=== PATIENT | female | born 1950 | race Caucasian/White ===

== ENCOUNTER 2017-08-19 09:59 | Inpatient (IN) | payer BC, OTHER ==
[~2017-08-19] VITALS: Ht 149.9 cm; Wt 49.8 kg
[2017-08-19] MEDS ORDERED: ONDANSETRON 4 MG INJ IV STA (10:32)
[2017-08-19] MEDS ORDERED: SOD CHLORIDE 0.9% 1,000 ML IV STA (10:32)
[2017-08-19] MEDS ORDERED: HYDROmorphONE 1 MG/ML SYG IV STA (10:32)
[2017-08-19 11:06] LABS: ADD UMIC YES; UR ASCORBIC ACID NEGATIVE (NEGATIVE); UR BACTERIA FEW /HPF (NONE SEEN); UR BILIRUBIN (Dip) NEGATIVE (NEGATIVE); UR BLOOD (Dip) 1+ mg/dL (NEGATIVE); UR CLARITY SLIGHTLY CLOUDY (CLEAR); UR COLOR YELLOW (YELLOW); UR GLUCOSE (Dip) NEGATIVE (NEGATIVE); UR KETONES (Dip) NEGATIVE (NEGATIVE); UR LEUKOCYTE ESTERASE (Dip) 1+ Leu/ul (NEGATIVE); UR MUCUS MANY /HPF (NONE SEEN); UR NITRITE (Dip) NEGATIVE (NEGATIVE); UR RBC 0 /HPF (0-5); UR SPECIFIC GRAVITY (Dip) 1.018 (1.003-1.030); UR SQUAMOUS EPITHELIAL CELL FEW /HPF (FEW); UR TOTAL PROTEIN (Dip) NEGATIVE (NEGATIVE); UR UROBILINOGEN (Dip) NEGATIVE (NEGATIVE)
[2017-08-19 11:18] LABS: BASOPHIL # 0.1 10^3/ul (0.0-0.1); BASOPHILS % 0.8 % (0.0-2.0); EOSINOPHILS % 0.1 % (0.0-7.0); HEMOGLOBIN 13.4 g/dl (12.0-16.0); LYMPHOCYTES # 1.7 10^3/ul (0.8-2.9); LYMPHOCYTES % 17.7 % (15.0-51.0); MEAN CORPUSCULAR HEMOGLOBIN 29.5 pg (29.0-33.0); MEAN CORPUSCULAR HGB CONC 34.4 g/dl (32.0-37.0); MEAN CORPUSCULAR VOLUME 85.9 fl (82.0-101.0); MEAN PLATELET VOLUME 10.3 fl (7.4-10.4); MONOCYTE # 0.5 10^3/ul (0.3-0.9); MONOCYTES % 4.8 % (0.0-11.0); NEUTROPHIL # 7.1 10^3/ul (1.6-7.5); NEUTROPHILS % 76.3 % (39.0-77.0); PLATELET COUNT 337 10^3/UL (140-415); RED BLOOD COUNT 4.54 10^6/ul (4.20-5.40); RED CELL DISTRIBUTION WIDTH 13.1 % (11.5-14.5); WHITE BLOOD COUNT 9.3 10^3/ul (4.8-10.8)
[2017-08-19 11:32] LABS: ALBUMIN 4.4 g/dl (3.3-4.9); ALBUMIN/GLOBULIN RATIO 1.33; BILIRUBIN,INDIRECT 0.7 mg/dl (0-1.1); BILIRUBIN,TOTAL 0.7 mg/dl (0.2-1.3); CALCIUM 11.3 mg/dl (8.4-10.2); CREATININE 0.66 mg/dl (0.44-1.00); TOTAL PROTEIN 7.7 g/dl (6.1-8.1)
[2017-08-19] MEDS ORDERED: IOHEXOL 300MG/ML 150 ML BTL ONE (11:56)
[2017-08-19] MEDS ORDERED: SOD CHLORIDE 0.9% 100 ML ONE (11:56)
--- NOTE | 2017-08-19 12:40 | RADRPT ---
PROCEDURE: CT ABDOMEN AND PELVIS WITH IV CONTRAST. CLINICAL INDICATION: Lower abdominal pain TECHNIQUE: CT scan of the abdomen and pelvis without contrast was performed on a multidetector hig h-resolution CT scanner following the use of IV contrast. 80 cc Omnipaque-300 was administered. Arthur nal and sagittal reformatted images were obtained from the axial source images. Images were reviewed on a high-resolution PACS workstation. The total exam CTDI equals 7.7 mGy and the total exam DLP eq uals 380 mGy-cm. One or more of the following dose reduction techniques were used: Automated exposure control. Adjustment of the mA and/or kV according to patient size. Use of iterative reconstruction technique. DICOM images are available. COMPARISON: None FINDINGS: CT abdomen: The lung bases are clear. The heart size is within normal limits. There is no significant pericardia l effusion. Hepatic morphology is within limits. There is trace perihepatic fluid. Gallbladder is is within limi ts. No evidence of intrahepatic or extrahepatic dilatation. The spleen and pancreas are within limits. Both adrenal glands are within normal limits. Both kidneys are normal anatomic position. There are small bilateral renal cysts. No gross renal/ure teric calculi. No evidence of obstruction hydronephrosis. The visualized GI tract demonstrates several fluid filled dilated loops of distal small bowel within the right lower quadrant. Anastomotic sutures are noted within the right lower quadrant. Status pos t right hemicolectomy. There is adjacent fat stranding small amount of fluid within the right lower quadrant. Distal small bowel fecalization is noted. Minimal atherosclerotic calcification of the aorta is identified. No significant retroperitoneal lym phadenopathy. CT pelvis: The bladder is within normal limits. The uterus is unremarkable. Small amount free fluid within the pelvis. Rectosigmoid colon is within limits. The uterus is unremarkable. No significant pelvic lymph adenopathy. The visualized osseous structures demonstrate mild degenerative changes. IMPRESSION: 1. Status post right hemicolectomy and anastomotic sutures are noted within the right lower quadrant .. The appendix is not visualized. There are several loops of dilated distal small bowel loops, with small bowel fecaliation and adjacent small amount of free fluid and fat stranding. Findings suggest luiza of partial small bowel obstruction versus early small bowel obstruction. Consider follow-up smal l bowel series. 2. Small bilateral renal cysts. No evidence of obstruction or hydronephrosis. RPTAT: AAPP Madan Allison, Physician Date Time Electronically viewed and signed by Madan Allison, Physician on 08/19/2017 12:40 HIREN/
--- NOTE | 2017-08-19 14:06 | ERD ---
ER Documentation Chief Complaint Chief Complaint sent by dr melo for eval on abd pain x 2 days HPI This is a the 66-year-old female who is here for her diffuse abdominal pain onset yesterday. She the pain is getting gradually worse. Patient says she is having no nausea vomiting diarrhea has had no bowel movement today. She has a history of a partial colectomy due to what she describes as a "infected ball" which I assume is an abscess, likely from a diverticulitis perforation. She states she does not have colon cancer. Says the pain is constant and progressively getting worse. Her doctor sent her here for evaluation no fever no cough no back pain dysuria or hematuria ROS All systems reviewed and are negative except as per history of present illness. Medications Home Meds Discontinued Reported Medications [None] No Conflict Check 06/09/15 Allergies Allergies: Coded Allergies: No Known Allergy (Unverified , 06/09/15) PMhx/Soc History of Surgery: Yes (LEFT BREAST CYST REMOVAL, LAPROSCOPIC SURGERY) Anesthesia Reaction: No Hx Neurological Disorder: No Hx Respiratory Disorders: No Hx Cardiac Disorders: Yes (HYPERCHOLESTEROLEMIA) Hx Psychiatric Problems: No Hx Miscellaneous Medical Probl: No Hx Alcohol Use: No Hx Substance Use: No Hx Tobacco Use: No Smoking Status: Never smoker FmHx Family History: No coronary disease Physical Exam Vitals Vital Signs Date Time Temp Pulse Resp B/P Pulse Ox O2 Delivery O2 Flow Rate FiO2 08/19/17 12:38 98.2 61 13 128/65 96 Room Air 08/19/17 10:15 63 16 150/63 100 Room Air 08/19/17 10:02 97.7 71 18 151/70 99 Physical Exam Const: Well-developed, well-nourished Head: Atraumatic, normocephalic Eyes: Normal Conjunctiva, PERRLA, EOMI, normal sclera, no nystagmus ENT: Normal External Ears, Nose and Mouth, moist mucus membranes. Neck: Full range of motion. No meningismus, no lymphadenopathy. Resp: Clear to auscultation bilaterally, no wheezing, rhonchi, rales Cardio: Regular rate and rhythm, no murmurs, S1 S2 present Abd: Soft, diffuse mild to moderate tenderness non distended. Normal bowel sounds, no guarding or rebound, no pulsitile abdominal masses or bruits Skin: No petechiae or rashes, no ecchymosis , no maculopapular rash Back: No midline or flank tenderness Ext: No cyanosis, or edema, FROM x 4, normal inspection, neurovascularly intact x 4 Neur: Awake and alert, STR 5/5 x 4, sensation intact x 4, no focal findings, cerebellum intact Psych: Normal Mood and Affect Result Diagram: 08/19/17 1045 08/19/17 1045 Results 24 hrs Laboratory Tests Test 08/19/17 10:45 White Blood Count 9.310^3/ul Red Blood Count 4.5410^6/ul Hemoglobin 13.4g/dl Hematocrit 39.0% Mean Corpuscular Volume 85.9fl Mean Corpuscular Hemoglobin 29.5pg Mean Corpuscular Hemoglobin Concent 34.4g/dl Red Cell Distribution Width 13.1% Platelet Count 39969^3/UL Mean Platelet Volume 10.3fl Neutrophils % 76.3% Lymphocytes % 17.7% Monocytes % 4.8% Eosinophils % 0.1% Basophils % 0.8% Nucleated Red Blood Cells % 0.0/100WBC Neutrophils # 7.110^3/ul Lymphocytes # 1.710^3/ul Monocytes # 0.510^3/ul Eosinophils # 0.010^3/ul Basophils # 0.110^3/ul Nucleated Red Blood Cells # 0.010^3/ul Urine Color YELLOW Urine Clarity SLIGHTLY CLOUDY Urine pH 6.0 Urine Specific [place] 1.018 Urine Ketones NEGATIVEmg/dL Urine Nitrite NEGATIVEmg/dL Urine Bilirubin NEGATIVEmg/dL Urine Urobilinogen NEGATIVEmg/dL Urine Leukocyte Esterase 1+Stephane/ul Urine Microscopic RBC 0/HPF Urine Microscopic WBC 5/HPF Urine Squamous Epithelial Cells FEW/HPF Urine Calcium Oxalate Crystals FEW/HPF Urine Bacteria FEW/HPF Urine Mucus MANY/HPF Urine Hemoglobin 1+mg/dL Urine Glucose NEGATIVEmg/dL Urine Total Protein NEGATIVEmg/dl Sodium Level 141mmol/L Potassium Level 4.0mmol/L Chloride Level 104mmol/L Carbon Dioxide Level 24mmol/L Anion Gap 17 Blood Urea Nitrogen 12mg/dl Creatinine 0.66mg/dl Glucose Level 98mg/dl Calcium Level 11.3mg/dl Total Bilirubin 0.7mg/dl Direct Bilirubin 0.00mg/dl Indirect Bilirubin 0.7mg/dl Aspartate Amino Transf (AST/SGOT) 33IU/L Alanine Aminotransferase (ALT/SGPT) 36IU/L Alkaline Phosphatase 205IU/L Total Protein 7.7g/dl Albumin 4.4g/dl Globulin 3.30g/dl Albumin/Globulin Ratio 1.33 Lipase 185U/L Current Medications Medications (Trade) Dose Ordered Sig/Karen Route PRN Reason Start Time Stop Time Status Last Admin Dose Admin Sodium Chloride (NS) 1,000 ml @ 1,000 mls/hr Q1H STAT IV 08/19/17 10:32 08/19/17 11:31 DC 08/19/17 11:09 Hydromorphone HCl (Dilaudid) 1 mg ONCE STAT IV 08/19/17 10:32 08/19/17 10:34 DC 08/19/17 11:08 Ondansetron HCl (Zofran Inj) 4 mg ONCE STAT IV 08/19/17 10:32 08/19/17 10:34 DC 08/19/17 11:08 IV Flush 10 ml 10 ml STK-MED ONCE .ROUTE 08/19/17 11:56 08/19/17 11:57 DC 08/19/17 12:13 Sodium Chloride (NS) 100 ml @ ud STK-MED ONCE .ROUTE 08/19/17 11:56 08/19/17 11:57 DC 08/19/17 12:13 Iohexol (Omnipaque 300mg/ ml) 150 ml STK-MED ONCE .ROUTE 08/19/17 11:56 08/19/17 11:57 DC 08/19/17 12:13 Procedures/MDM PROCEDURE: CT ABDOMEN AND PELVIS WITH IV CONTRAST. CLINICAL INDICATION: Lower abdominal pain TECHNIQUE: CT scan of the abdomen and pelvis without contrast was performed on a multidetector high-resolution CT scanner following the use of IV contrast. 80 cc Omnipaque-300 was administered. Coronal and sagittal reformatted images were obtained from the axial source images. Images were reviewed on a high- resolution PACS workstation. The total exam CTDI equals 7.7 mGy and the total exam DLP equals 380 mGy-cm. One or more of the following dose reduction techniques were used: Automated exposure control. Adjustment of the mA and/or kV according to patient size. Use of iterative reconstruction technique. DICOM images are available. COMPARISON: None FINDINGS: CT abdomen: The lung bases are clear. The heart size is within normal limits. There is no significant pericardial effusion. Hepatic morphology is within limits. There is trace perihepatic fluid. Gallbladder is is within limits. No evidence of intrahepatic or extrahepatic dilatation. The spleen and pancreas are within limits. Both adrenal glands are within normal limits. Both kidneys are normal anatomic position. There are small bilateral renal cysts. No gross renal/ureteric calculi. No evidence of obstruction hydronephrosis. The visualized GI tract demonstrates several fluid filled dilated loops of distal small bowel within the right lower quadrant. Anastomotic sutures are noted within the right lower quadrant. Status post right hemicolectomy. There is adjacent fat stranding small amount of fluid within the right lower quadrant. Distal small bowel fecalization is noted. Minimal atherosclerotic calcification of the aorta is identified. No significant retroperitoneal lymphadenopathy. CT pelvis: The bladder is within normal limits. The uterus is unremarkable. Small amount free fluid within the pelvis. Rectosigmoid colon is within limits. The uterus is unremarkable. No significant pelvic lymphadenopathy. The visualized osseous structures demonstrate mild degenerative changes. IMPRESSION: 1. Status post right hemicolectomy and anastomotic sutures are noted within the right lower quadrant.. The appendix is not visualized. There are several loops of dilated distal small bowel loops, with small bowel fecaliation and adjacent small amount of free fluid and fat stranding. Findings suggestive of partial small bowel obstruction versus early small bowel obstruction. Consider follow- up small bowel series. 2. Small bilateral renal cysts. No evidence of obstruction or hydronephrosis. RPTAT: AAPP Physician Nathalie Date Time Electronically viewed and signed by Physician Nathalie on 08/19/2017 12:40 JL/ CC: MICHELLE ALMEIDA DO Patient has a partial small bowel obstruction. We are paging the surgeon on- call Dr. Perry We will admit to the hospitalist for bowel rest and IV fluids She is not vomiting at this time I will not place an NG tube Departure Diagnosis: Primary Impression: Partial small bowel obstruction Condition: Stable MICHELLE ALMEIDA DO Aug 19, 2017 14:06
[2017-08-19] MEDS ORDERED: SOD CHLORIDE 0.9% 1,000 ML IV SCH (14:08)
[2017-08-19] MEDS ORDERED: ACETAMINOPHEN 325 MG TAB PO PRN ×2 (14:30→17:00)
[2017-08-19] MEDS ORDERED: ONDANSETRON 4 MG INJ IV PRN (14:30)
--- NOTE | 2017-08-19 16:27 | CONS ---
Date/Time of Note Date/Time of Note DATE: 08/19/17 TIME: 16:13 Assessment/Plan Assessment/Plan Chief Complaint/Hosp Course 1. Partial sbo vs. ileus: recent right colectomy; +bowel function -sbft -ambulate -npo -ivf 2. Abdominal pain: 2/2 #1 -pain management 3. UTI: -abx per sensitivity -frequent bladder emptying/cath care 4. Elevated alk phos -trend 5. Hypercalcemia -optimize lytes Thank you. Patient seen and examined in collaboration with Dr. Los Perry. Problems: Consultation Date/Type/Reason Admit Date/Time Date of Consultation: Aug 19, 2017 Type of Consultation: surgical Reason for Consultation psbo Referring Provider: MICHELLE ALMEIDA DO Hx of Present Illness Kwan Lux is a 66 yo woman with a recent right colectomy who presented with abdominal pain in the lower abdomen. She had a right colectomy for a non- cancerous mass removal over a year ago at [facility] by Dr. Klein. Associated symptoms include nausea without vomiting. She has passed some gas and has a small bowel movement today. She denies fevers, chills, congested cough , hematemesis, hematochezia, melena. Imaging of the abdomen was concerning for bowel obstruction. General surgery was asked to evaluate. Constitutional: No chills, No disoriented, No febrile Eyes: No visual change ENT: No congestion, No pain Respiratory: No cough, No shortness of breath Cardiovascular: No chest pain, No lightheadedness Gastrointestinal: decreased appetite, nausea, No constipation, No diarrhea, No vomiting Genitourinary: No dysuria, No flank pain Musculoskeletal: No back pain Skin: No bruising, No rash Neurologic: No dizziness, No focal-weakness, No headache Psychological: nl mood/affect, No anxiety Immunologic: No no complaints Past Medical History hypercholesterolemia left breast cyst mass in prox ascending colon Past Surgical History right colectomy lap breast cyst removal Family History Significant Family History: no pertinent family hx Social History Alcohol Use: none Smoking Status: Never smoker Drug Use: none Exam/Review of Systems Vital Signs Vitals Vital Signs Date Time Temp Pulse Resp B/P Pulse Ox O2 Delivery O2 Flow Rate FiO2 08/19/17 12:38 98.2 61 13 128/65 96 Room Air Exam Constitutional: alert, oriented Psych: nl mood/affect Head: atraumatic, normocephalic Eyes: nl lids, nl sclera ENMT: mucosa pink and moist, nl nasal mucosa & septum Neck: non-tender, supple Respiratory: clear to auscultation, normal air movement Cardiovascular: nl pulses, regular rate and rhythm (sr) Gastrointestinal: distended (min), soft, tender (min lower quads) Genitourinary - Female: nl adnexae, nl external genitalia Musculoskeletal: nl extremities to inspection, nl gait and stance Extremities: normal pulses Neurological: nl mental status, nl speech, nl strength Skin: No rash or lesions Lymph: nl lymph nodes Results Result Diagram: 08/19/17 1045 08/19/17 1045 Results 24 hrs Laboratory Tests Test 08/19/17 10:45 White Blood Count 9.3 Red Blood Count 4.54 Hemoglobin 13.4 Hematocrit 39.0 Mean Corpuscular Volume 85.9 Mean Corpuscular Hemoglobin 29.5 Mean Corpuscular Hemoglobin Concent 34.4 Red Cell Distribution Width 13.1 Platelet Count 337 Mean Platelet Volume 10.3 Neutrophils % 76.3 Lymphocytes % 17.7 Monocytes % 4.8 Eosinophils % 0.1 Basophils % 0.8 Nucleated Red Blood Cells % 0.0 Neutrophils # 7.1 Lymphocytes # 1.7 Monocytes # 0.5 Eosinophils # 0.0 Basophils # 0.1 Nucleated Red Blood Cells # 0.0 Urine Color YELLOW Urine Clarity SLIGHTLY CLOUDY A Urine pH 6.0 Urine Specific [place] 1.018 Urine Ketones NEGATIVE Urine Nitrite NEGATIVE Urine Bilirubin NEGATIVE Urine Urobilinogen NEGATIVE Urine Leukocyte Esterase 1+ H Urine Microscopic RBC 0 Urine Microscopic WBC 5 Urine Squamous Epithelial Cells FEW Urine Calcium Oxalate Crystals FEW A Urine Bacteria FEW A Urine Mucus MANY A Urine Hemoglobin 1+ H Urine Glucose NEGATIVE Urine Total Protein NEGATIVE Sodium Level 141 Potassium Level 4.0 Chloride Level 104 Carbon Dioxide Level 24 Anion Gap 17 H Blood Urea Nitrogen 12 Creatinine 0.66 Glucose Level 98 Calcium Level 11.3 H Total Bilirubin 0.7 Direct Bilirubin 0.00 Indirect Bilirubin 0.7 Aspartate Amino Transf (AST/SGOT) 33 Alanine Aminotransferase (ALT/SGPT) 36 Alkaline Phosphatase 205 H Total Protein 7.7 Albumin 4.4 Globulin 3.30 H Albumin/Globulin Ratio 1.33 Lipase 185 Medications Medications Current Medications Sodium Chloride (NS) 1,000 ml @ 80 mls/hr [id number] IV ; Start 08/19/17 at 14:08 ; Stop 08/20/17 at 02:37 KIERRA WALTERS NP Aug 19, 2017 16:25
[2017-08-19] MEDS ORDERED: ACETAMINOPHEN 650 MG SUPP PR PRN (17:00)
[2017-08-19] MEDS ORDERED: DOCUSATE SODIUM 100 MG CAP PO PRN (17:00)
[2017-08-19] MEDS ORDERED: HYDROCODONE/APAP (5/325) TAB PO PRN ×2 (17:00)
[2017-08-19] MEDS ORDERED: MAGNESIUM HYDROXIDE 30ML CUP PO PRN (17:00)
[2017-08-19] MEDS ORDERED: NACL 0.9% 3 ML SYG IV SCH (17:00)
[2017-08-19] MEDS ORDERED: BISACODYL 10 MG SUPP PR PRN (17:00)
--- NOTE | 2017-08-19 17:06 | HP ---
Date/Time of Note Date/Time of Note DATE: 08/19/17 TIME: 17:00 Assessment/Plan VTE Prophylaxis VTE Prophylaxis Intervention: SCD's Assessment/Plan Chief Complaint/Hosp Course Impression and plan 1.Abdominal pain secondary to possible partial SBO versus early small bowel obstruction. Surgeon is following. Keep n.p.o. for now. Will place an IV hydration. Analgesics as needed. Monitor for improvement of pain. Advance diet per surgery recommendations. 2. Positive leukocyte esterase test. Will follow up on urine culture. Patient remains afebrile with no elevation in white count and no reports of dysuria. Will hold off antibiotics for now. 3. Elevated calcium level. Likely transient. Start IV hydration. Monitor level. 4. Transaminitis. Monitor for now. Further workup pending clinical course. Admission process time is greater than 40 minutes Discussed plan of care with Dr. 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 Patient reports she has been nausea without vomiting or diarrhea. She does report being able to pass gas and had a bowel movement both yesterday and today. She reports only minimal but formed bowel movement. She denies any chest pain or sick contacts or any other fever associated symptoms. As such she was brought to [facility] for further evaluation. Upon examination she had a CT scan of her abdomen and pelvis did have findings showing right-sided hemicolectomy and anastomotic sutures. There are also seen several loops of dilated distal small bowel loops. Findings were suggestive of partial small bowel obstruction versus early small bowel obstruction. CBC was otherwise unremarkable. Lipase was normal. BMP was also with no significant findings. Patient remained afebrile. We will evaluate her for the aformentiond issues. ROS 12 point review of systems obtained and entirely negative except that mentioned in the history of present illness Eyes: No visual change ENT: No congestion, No pain Respiratory: No cough, No shortness of breath Cardiovascular: No chest pain, No lightheadedness Gastrointestinal: decreased appetite, nausea, No constipation, No diarrhea, No vomiting Genitourinary: No dysuria, No flank pain Musculoskeletal: No back pain Skin: No bruising, No rash Neurologic: No dizziness, No focal-weakness, No headache Psychological: nl mood/affect Immunologic: No no complaints PMH/Family/Social Past Medical History Medical/surgical history 1. History of colonic tumor status post colectomy (right) Social History Alcohol Use: none Smoking Status: Never smoker Drug Use: none Exam/Review of Systems Vital Signs Vitals Vital Signs Date Time Temp Pulse Resp B/P Pulse Ox O2 Delivery O2 Flow Rate FiO2 08/19/17 12:38 98.2 61 13 128/65 96 Room Air Exam Constitutional: alert, oriented Eyes: nl conjunctiva Respiratory: clear to auscultation, normal air movement Cardiovascular: nl pulses, regular rate and rhythm Gastrointestinal: soft, tender (Tender with noted hypoactive bowel sounds) Musculoskeletal: nl extremities to inspection Neurological: [employer] II-XII intact, nl mental status, nl speech Labs Result Diagram: 08/19/17 1045 08/19/17 1045 Medications Medications Current Medications Sodium Chloride 1,000 ml @ 80 mls/hr [id number] IV ; Start 08/19/17 at 14:08; Stop 08/20/17 at 02:37 Potassium Chloride/Dextrose/ Sod Cl (D5-1/2ns + KCl 20 Meq) 1,000 ml @ 75 mls/ hr [id number] IV ; Start 08/19/17 at 16:50; Status UNV Ondansetron HCl (Zofran Inj) 4 mg Q6H PRN IV NAUSEA AND/OR VOMITING; Start at 17:00; Status UNV Acetaminophen (Tylenol Tab) 650 mg Q6H PRN PO PAIN LEVEL 1-3 OR FEVER; Start 08/19/17 at 17:00; Status UNV Acetaminophen (Tylenol Supp) 650 mg Q6H PRN [place] PAIN LEVEL 1-3 OR FEVER; Start 08/19/17 at 17:00; Status UNV Acetaminophen/ Hydrocodone Bitart ([place] (5/325)) 1 tab Q6H PRN PO MODERATE PAIN LEVEL 4-6; Start 08/19/17 at 17:00; Status UNV Acetaminophen/ Hydrocodone Bitart ([place] (5/325)) 2 tab Q6H PRN PO SEVERE PAIN LEVEL 7-10; Start 08/19/17 at 17:00; Status UNV Morphine Sulfate (morphine) 2 mg Q4H PRN IV SEVERE PAIN LEVEL 7-10; Start at 17:00; Status UNV Docusate Sodium (Colace) 100 mg Q12H PRN PO CONSTIPATION; Start 08/19/17 at 17 :00; Status UNV Magnesium Hydroxide (Milk Of Mag) 30 ml DAILY PRN PO CONSTIPATION; Start 08/19 at 17:00; Status UNV Bisacodyl (Dulcolax Supp) 10 mg DAILY PRN [place] CONSTIPATION; Start 08/19/17 at 17:00; Status UNV Pantoprazole (Protonix Iv) 40 mg DAILY@06 IV ; Start 08/20/17 at 06:00; Status UNV YESSY MONTOYA Aug 19, 2017 17:06
[2017-08-19] MEDS: morphine 2 MG INJ IV PRN (18:14)
[2017-08-19] MEDS: D5W-0.45 NACL + KCL 20 MEQ 1,000 ML IV SCH (19:00)
[2017-08-20 00:08] VITALS: TEMP 98.1
[2017-08-20 01:10] VITALS: Ht 149.9 cm; Wt 49.8 kg
[2017-08-20 01:21] VITALS: BP 152/67; PULSE 60; RESP 19
[2017-08-20] MEDS: ONDANSETRON 4 MG INJ IV PRN ×2 (01:39→13:59)
[2017-08-20] MEDS: morphine 2 MG INJ IV PRN ×4 (01:39→14:02)
[2017-08-20] MEDS: D5W-0.45 NACL + KCL 20 MEQ 1,000 ML IV SCH (05:24)
[2017-08-20] MEDS: PANTOPRAZOLE 40 MG INJ IV SCH (05:24)
[2017-08-20 06:23] LABS: ALBUMIN 3.6 g/dl (3.3-4.9); ALBUMIN/GLOBULIN RATIO 1.12; BILIRUBIN,INDIRECT 0.6 mg/dl (0-1.1); BILIRUBIN,TOTAL 0.6 mg/dl (0.2-1.3); CALCIUM 10.5 mg/dl (8.4-10.2); CHOL/HDL RATIO 4.6 RATIO; CREATININE 0.7 mg/dl (0.44-1.00); PHOSPHORUS 3.3 mg/dl (2.5-4.9); POTASSIUM 3.7 mmol/L (3.5-5.1); TOTAL PROTEIN 6.8 g/dl (6.1-8.1)
[2017-08-20 06:38] LABS: T3 UPTAKE 33.5 % (23.5-40.5)
[2017-08-20 06:52] LABS: THYROID STIMULATING HORMONE 2.36 MIU/L (0.465-4.680)
[2017-08-20 07:25] VITALS: BP_SYST 123; BP_SYST 20; BP_DIAS 58; BP_DIAS 96; RESP 20
[2017-08-20] MEDS ORDERED: DIATR MEGLU/DIATRIZOATE SODIUM 120 ML BTL ONE (12:20)
--- NOTE | 2017-08-20 13:48 | PN ---
Date/Time of Note Date/Time of Note DATE: 08/20/17 TIME: 13:43 Assessment/Plan VTE Prophylaxis VTE Prophylaxis Intervention: SCD's Lines/Catheters IV Catheter Type (from Nrsg): Peripheral IV Assessment/Plan Chief Complaint/Hosp Course Impression and plan 1.Abdominal pain secondary to possible partial SBO versus early small bowel obstruction. Surgeon is following. remains n.p.o. for now. Will place an IV hydration. Analgesics as needed. Monitor for improvement of pain. Advance diet per surgery recommendations. 2. Positive leukocyte esterase test. Will follow up on urine culture. Patient remains afebrile with no elevation in white count and no reports of dysuria. Will hold off antibiotics for now 3. Elevated calcium level. Likely transient. Start IV hydration. Monitor level. 4. Transaminitis. Monitor for now. Further workup pending clinical course. dispo/plan. continue bowel rest. follow up with surgeon recroxane. Await for improvement of abd pain. Discussed plan of care with Dr. Desai Problems: Subjective 24 Hr Interval Summary Free Text/Dictation still reports having some abdominal pain Exam/Review of Systems Vital Signs Vitals Vital Signs Date Time Temp Pulse Resp B/P Pulse Ox O2 Delivery O2 Flow Rate FiO2 08/20/17 07:25 97.5 58 20 123/58 96 08/20/17 01:21 Room Air Intake and Output 08/19/17 08/19/17 08/20/17 15:00 23:00 07:00 Intake Total 360 ml Balance 360 ml Exam Constitutional: alert, oriented Eyes: nl conjunctiva Respiratory: clear to auscultation, normal air movement Cardiovascular: nl pulses, regular rate and rhythm Gastrointestinal: soft, tender (Tender with noted hypoactive bowel sounds) Musculoskeletal: nl extremities to inspection Neurological: HOUSEMAN II-XII intact, nl mental status, nl speech Results Result Diagram: 08/19/17 1045 08/20/17 0434 Results 24 hrs Laboratory Tests Test 08/20/17 04:33 08/20/17 04:34 Hemoglobin A1c 5.5 Sodium Level 140 Potassium Level 3.7 Chloride Level 107 Carbon Dioxide Level 26 Anion Gap 11 Blood Urea Nitrogen 9 Creatinine 0.70 Glucose Level 109 Calcium Level 10.5 H Phosphorus Level 3.3 Magnesium Level 2.0 Total Bilirubin 0.6 Direct Bilirubin 0.00 Indirect Bilirubin 0.6 Aspartate Amino Transf (AST/SGOT) 32 Alanine Aminotransferase (ALT/SGPT) 33 Alkaline Phosphatase 160 H Total Protein 6.8 Albumin 3.6 Globulin 3.20 Albumin/Globulin Ratio 1.12 Triglycerides Level 111 Cholesterol Level 224 H LDL Cholesterol, Calculated 154 HDL Cholesterol 48 Cholesterol/HDL Ratio 4.6 Thyroid Stimulating Hormone (TSH) 2.360 Free Thyroxine Index 3.28 Thyroxine (T4) 9.8 Triiodothyronine (T3) Uptake 33.5 Medications Medications Current Medications Potassium Chloride/Dextrose/ Sod Cl (D5-1/2ns + KCl 20 Meq) 1,000 ml @ 75 mls/ hr [id number] IV Last administered on 08/20/17 05:24; Admin Dose 75 MLS/HR; Start 08/19/17 at 16:50 Ondansetron HCl (Zofran Inj) 4 mg Q6H PRN IV NAUSEA AND/OR VOMITING Last administered on 08/20/17 01:39; Admin Dose 4 MG; Start 08/19/17 at 17:00 Acetaminophen (Tylenol Tab) 650 mg Q6H PRN PO PAIN LEVEL 1-3 OR FEVER; Start 08/19/17 at 17:00 Acetaminophen (Tylenol Supp) 650 mg Q6H PRN [place] PAIN LEVEL 1-3 OR FEVER; Start 08/19/17 at 17:00 Acetaminophen/ Hydrocodone Bitart ([place] (5/325)) 1 tab Q6H PRN PO MODERATE PAIN LEVEL 4-6; Start 08/19/17 at 17:00 Acetaminophen/ Hydrocodone Bitart ([place] (5/325)) 2 tab Q6H PRN PO SEVERE PAIN LEVEL 7-10; Start 08/19/17 at 17:00 Morphine Sulfate (morphine) 2 mg Q4H PRN IV SEVERE PAIN LEVEL 7-10 Last administered on 08/20/17 09:35; Admin Dose 2 MG; Start 08/19/17 at 17:00 Docusate Sodium (Colace) 100 mg Q12H PRN PO CONSTIPATION; Start 08/19/17 at 17 :00 Magnesium Hydroxide (Milk Of Mag) 30 ml DAILY PRN PO CONSTIPATION; Start 08/19 at 17:00 Bisacodyl (Dulcolax Supp) 10 mg DAILY PRN [place] CONSTIPATION; Start 08/19/17 at 17:00 Pantoprazole (Protonix Iv) 40 mg DAILY@06 IV Last administered on 08/20/17t 05 :24; Admin Dose 40 MG; Start 08/20/17 at 06:00 YESSY MONTOYA Aug 20, 2017 13:48
[2017-08-20 14:07] VITALS: BP 156/67; RESP 20
--- NOTE | 2017-08-20 15:12 | PN ---
Date/Time of Note Date/Time of Note DATE: 08/20/17 TIME: 15:07 Assessment/Plan Lines/Catheters IV Catheter Type (from Nrsg): Peripheral IV Assessment/Plan Chief Complaint/Hosp Course 1. Partial sbo vs. ileus: recent right colectomy; no bowel function today, vomited; pending sbft -ngt to liws -ambulate -npo -ivf 2. Abdominal pain: 2/2 #1 -pain management 3. UTI: -abx per sensitivity -frequent bladder emptying/cath care 4. Elevated alk phos -trend 5. Hypercalcemia -optimize lytes Thank you. Patient seen and examined in collaboration with Dr. Los Perry. Problems: Subjective 24 Hr Interval Summary Continues to have lower abdominal pain. No flatus/bm today. Pending small bowel follow through. 1 time emesis (nonbloody). No fevers, chills, sob, congested cough, cp, palpitations, cardenas, dizziness, n/v/d/dysuria. Exam/Review of Systems Vital Signs Vitals Vital Signs Date Time Temp Pulse Resp B/P Pulse Ox O2 Delivery O2 Flow Rate FiO2 08/20/17 14:07 97.2 68 20 156/67 96 08/20/17 01:21 Room Air Intake and Output 08/19/17 08/19/17 08/20/17 15:00 23:00 07:00 Intake Total 360 ml Balance 360 ml Exam Free Text/Dictation Constitutional: alert, oriented Psych: nl mood/affect Head: atraumatic, normocephalic Eyes: nl lids, nl sclera ENMT: mucosa pink and moist, nl nasal mucosa & septum Neck: non-tender, supple Respiratory: clear to auscultation, normal air movement Cardiovascular: nl pulses, regular rate and rhythm (sr) Gastrointestinal: distended (min), soft, tender (lower quads), +bowel sounds Genitourinary - Female: nl adnexae, nl external genitalia Musculoskeletal: nl extremities to inspection, nl gait and stance Extremities: normal pulses Neurological: nl mental status, nl speech, nl strength Skin: No rash or lesions Lymph: nl lymph nodes Results Result Diagram: 08/19/17 1045 08/20/17 0434 KIERRA WALTERS NP Aug 20, 2017 15:12
[2017-08-20] MEDS: morphine 4 MG/ML VIAL IV PRN (16:33)
[2017-08-20 20:15] VITALS: BP 145/64; RESP 20
[2017-08-21 02:00] VITALS: BP 139/58; RESP 20
[2017-08-21] MEDS: D5W-0.45 NACL + KCL 20 MEQ 1,000 ML IV SCH ×3 (02:46→17:32)
[2017-08-21 05:20] LABS: BASOPHILS % 0.1 % (0.0-2.0); HEMATOCRIT 39.5 % (37.0-47.0); HEMOGLOBIN 13.6 g/dl (12.0-16.0); LYMPHOCYTES # 1.2 10^3/ul (0.8-2.9); LYMPHOCYTES % 11.3 % (15.0-51.0); MEAN CORPUSCULAR HEMOGLOBIN 29.8 pg (29.0-33.0); MEAN CORPUSCULAR HGB CONC 34.4 g/dl (32.0-37.0); MEAN CORPUSCULAR VOLUME 86.4 fl (82.0-101.0); MEAN PLATELET VOLUME 10.5 fl (7.4-10.4); MONOCYTE # 0.6 10^3/ul (0.3-0.9); MONOCYTES % 5.2 % (0.0-11.0); NEUTROPHIL # 9.1 10^3/ul (1.6-7.5); NEUTROPHILS % 83.1 % (39.0-77.0); PLATELET COUNT 355 10^3/UL (140-415); RED BLOOD COUNT 4.57 10^6/ul (4.20-5.40); RED CELL DISTRIBUTION WIDTH 13.1 % (11.5-14.5); WHITE BLOOD COUNT 10.9 10^3/ul (4.8-10.8)
[2017-08-21] MEDS: PANTOPRAZOLE 40 MG INJ IV SCH (06:08)
[2017-08-21 08:02] VITALS: BP 135/60; RESP 15
[2017-08-21 09:11] LABS: CALCIUM 11.3 mg/dl (8.4-10.2); CREATININE 0.65 mg/dl (0.44-1.00); POTASSIUM 4.3 mmol/L (3.5-5.1)
--- NOTE | 2017-08-21 10:54 | RADRPT ---
PROCEDURE: Small bowel follow-through. CLINICAL INDICATION: Abdomen pain. TECHNIQUE: Water-soluble contrast was administered orally and 14 images of the abdomen were obtain ed. COMPARISON: None. FINDINGS: The preliminary radiograph is normal. There is no small bowel displacement or mass. The small bowel folds are normal. There is no evidence of obstruction. Transit time is normal with contrast in the colon at 12 hours. At 19 hours, a large portion of the c ontrast is present within the colon. However, there is contrast remaining in the distal small bowel. Surgical gen are present in the right side of the abdomen, probably in the ascending colon.. IMPRESSION: 1. Normal small bowel follow-through. No evidence of obstruction. 2. Right-sided bowel surgery. RPTAT: QQ .Sal Churchill MD, Date Time Electronically viewed and signed by .Sal Churchill MD, on 08/21/2017 10:54 .R/
--- NOTE | 2017-08-21 12:20 | PN ---
Date/Time of Note Date/Time of Note DATE: 08/21/17 TIME: : Assessment/Plan Lines/Catheters IV Catheter Type (from Nrs): Peripheral IV Assessment/Plan Chief Complaint/Hosp Course 1. Partial sbo vs. ileus: recent right colectomy; no bowel function today, vomited; sbft normal= -ambulate -clears -ivf 2. Abdominal pain: 2/2 #1 -pain management 3. UTI: -abx per sensitivity -frequent bladder emptying/cath care 4. Elevated alk phos -trend 5. Hypercalcemia -optimize lytes 6. Mild Leukocytosis: no fevers -monitor -humphrey culture if worsens or persistent Thank you. Patient seen and examined in collaboration with Dr. Los Perry. Problems: Subjective 24 Hr Interval Summary SBFT normal. Reports vomiting overnight but no vomiting currently. Nausea much improved. Pain intermittent but overall improved. No fevers, chills, sob, congested cough, cp, palpitations, cardenas, dizziness, n/v/d/dysuria. Exam/Review of Systems Vital Signs Vitals Vital Signs Date Time Temp Pulse Resp B/P Pulse Ox O2 Delivery O2 Flow Rate FiO2 08/21/17 08:02 98.2 65 15 135/60 100 08/20/17 01:21 Room Air Intake and Output 08/20/17 08/20/17 08/21/17 15:00 23:00 07:00 Intake Total 700 ml 818 ml Output Total 700 ml Balance 0 ml 818 ml Exam Free Text/Dictation Constitutional: alert, oriented Psych: nl mood/affect Head: atraumatic, normocephalic Eyes: nl lids, nl sclera ENMT: mucosa pink and moist, nl nasal mucosa & septum Neck: non-tender, supple Respiratory: clear to auscultation, normal air movement Cardiovascular: nl pulses, regular rate and rhythm (sr) Gastrointestinal: nondistended, soft, tender (lower quads), +bowel sounds Genitourinary - Female: nl adnexae, nl external genitalia Musculoskeletal: nl extremities to inspection, nl gait and stance Extremities: normal pulses Neurological: nl mental status, nl speech, nl strength Skin: No rash or lesions Lymph: nl lymph nodes Results Result Diagram: 08/21/17 0432 08/21/17 043 KIERRA WALTERS NP Aug 21, 2017:20
[2017-08-21] MEDS: ONDANSETRON 4 MG INJ IV PRN (13:18)
[2017-08-21] MEDS: morphine 2 MG INJ IV PRN (13:18)
[2017-08-21 14:00] VITALS: BP 135/62; RESP 16
--- NOTE | 2017-08-21 14:00 | PN ---
Date/Time of Note Date/Time of Note DATE: 08/21/17 TIME: 13:57 Assessment/Plan VTE Prophylaxis VTE Prophylaxis Intervention: ambulation, SCD's Lines/Catheters IV Catheter Type (from Nrsg): Peripheral IV Assessment/Plan Chief Complaint/Hosp Course Impression and plan 1.Abdominal pain secondary to possible partial SBO versus early small bowel obstruction. Small bowel follow-through was negative for any obstruction. On clear liquid diet. Will monitor 2. Positive leukocyte esterase test. Empirically on antibiotic. Possibly contamination. Will monitor 3. Transaminitis. Monitor for now. Further workup pending clinical course. Remained stable dispo/plan. Monitor on liquid diet. Advance as tolerated. Anticipate discharge within the next 24 hours medically stable and cleared by consultants Discussed plan of care with Dr. Desai Problems: Subjective 24 Hr Interval Summary Free Text/Dictation no s/s of distress. reports less pain in abd Exam/Review of Systems Vital Signs Vitals Vital Signs Date Time Temp Pulse Resp B/P Pulse Ox O2 Delivery O2 Flow Rate FiO2 08/21/17 08:02 98.2 65 15 135/60 100 08/20/17 01:21 Room Air Intake and Output 08/20/17 08/20/17 08/21/17 15:00 23:00 07:00 Intake Total 700 ml 818 ml Output Total 700 ml Balance 0 ml 818 ml Exam Constitutional: alert, oriented Eyes: nl conjunctiva Respiratory: clear to auscultation, normal air movement Cardiovascular: nl pulses, regular rate and rhythm Gastrointestinal: soft, tender (Tender with noted hypoactive bowel sounds) Musculoskeletal: nl extremities to inspection Neurological: TRANSCRIBING OPERATOR HEAD II-XII intact, nl mental status, nl speech Results Result Diagram: 08/21/17 0432 08/21/17 0432 Results 24 hrs Laboratory Tests Test 08/21/17 04:32 White Blood Count 10.9 H Red Blood Count 4.57 Hemoglobin 13.6 Hematocrit 39.5 Mean Corpuscular Volume 86.4 Mean Corpuscular Hemoglobin 29.8 Mean Corpuscular Hemoglobin Concent 34.4 Red Cell Distribution Width 13.1 Platelet Count 355 Mean Platelet Volume 10.5 H Neutrophils % 83.1 H Lymphocytes % 11.3 L Monocytes % 5.2 Eosinophils % 0.0 Basophils % 0.1 Nucleated Red Blood Cells % 0.0 Neutrophils # 9.1 H Lymphocytes # 1.2 Monocytes # 0.6 Eosinophils # 0.0 Basophils # 0.0 Nucleated Red Blood Cells # 0.0 Sodium Level 143 Potassium Level 4.3 Chloride Level 105 Carbon Dioxide Level 25 Anion Gap 17 H Blood Urea Nitrogen 13 Creatinine 0.65 Glucose Level 148 Calcium Level 11.3 H Medications Medications Current Medications Potassium Chloride/Dextrose/ Sod Cl (D5-1/2ns + KCl 20 Meq) 1,000 ml @ 75 mls/ hr [id number] IV Last administered on 08/21/17 02:46; Admin Dose 75 MLS/HR; Start 08/19/17 at 16:50 Ondansetron HCl (Zofran Inj) 4 mg Q6H PRN IV NAUSEA AND/OR VOMITING Last administered on 08/21/17 13:18; Admin Dose 4 MG; Start 08/19/17 at 17:00 Acetaminophen (Tylenol Tab) 650 mg Q6H PRN PO PAIN LEVEL 1-3 OR FEVER; Start 08/19/17 at 17:00 Acetaminophen (Tylenol Supp) 650 mg Q6H PRN [place] PAIN LEVEL 1-3 OR FEVER; Start 08/19/17 at 17:00 Acetaminophen/ Hydrocodone Bitart ([place] (5/325)) 1 tab Q6H PRN PO MODERATE PAIN LEVEL 4-6; Start 08/19/17 at 17:00 Acetaminophen/ Hydrocodone Bitart ([place] (5/325)) 2 tab Q6H PRN PO SEVERE PAIN LEVEL 7-10; Start 08/19/17 at 17:00 Morphine Sulfate (morphine) 2 mg Q4H PRN IV SEVERE PAIN LEVEL 7-10 Last administered on 08/21/17 13:18; Admin Dose 2 MG; Start 08/19/17 at 17:00 Docusate Sodium (Colace) 100 mg Q12H PRN PO CONSTIPATION; Start 08/19/17 at 17 :00 Magnesium Hydroxide (Milk Of Mag) 30 ml DAILY PRN PO CONSTIPATION; Start 08/19 at 17:00 Bisacodyl (Dulcolax Supp) 10 mg DAILY PRN [place] CONSTIPATION; Start 08/19/17 at 17:00 Pantoprazole (Protonix Iv) 40 mg DAILY@06 IV Last administered on 08/21/17 06 :08; Admin Dose 40 MG; Start 08/20/17 at 06:00 Morphine Sulfate (morphine) 4 mg Q4H PRN IV pain Last administered on t 16:33; Admin Dose 4 MG; Start 08/20/17 at 14:00 YESSY MONTOYA Aug 21, 2017 14:00
[2017-08-21] MEDS: CIPROFLOXACIN 500 MG TAB PO SCH (17:32)
[2017-08-21 19:53] VITALS: BP 121/63; RESP 16
[2017-08-21] MEDS: morphine 4 MG/ML VIAL IV PRN (21:21)
[2017-08-22 02:41] VITALS: BP 130/60; RESP 18
[2017-08-22 05:21] LABS: BASOPHIL # 0.1 10^3/ul (0.0-0.1); BASOPHILS % 0.5 % (0.0-2.0); EOSINOPHILS # 0.1 10^3/ul (0.0-0.5); EOSINOPHILS % 1.2 % (0.0-7.0); HEMATOCRIT 36.1 % (37.0-47.0); LYMPHOCYTES # 2.5 10^3/ul (0.8-2.9); LYMPHOCYTES % 24.7 % (15.0-51.0); MEAN CORPUSCULAR HEMOGLOBIN 29.7 pg (29.0-33.0); MEAN CORPUSCULAR HGB CONC 33.2 g/dl (32.0-37.0); MEAN CORPUSCULAR VOLUME 89.4 fl (82.0-101.0); MEAN PLATELET VOLUME 10.4 fl (7.4-10.4); MONOCYTES % 9.5 % (0.0-11.0); NEUTROPHIL # 6.6 10^3/ul (1.6-7.5); NEUTROPHILS % 63.9 % (39.0-77.0); PLATELET COUNT 296 10^3/UL (140-415); RED BLOOD COUNT 4.04 10^6/ul (4.20-5.40); RED CELL DISTRIBUTION WIDTH 13.1 % (11.5-14.5); WHITE BLOOD COUNT 10.3 10^3/ul (4.8-10.8)
[2017-08-22] MEDS: PANTOPRAZOLE 40 MG INJ IV SCH (05:41)
[2017-08-22] MEDS: CIPROFLOXACIN 500 MG TAB PO SCH ×2 (05:41→18:01)
[2017-08-22] MEDS: D5W-0.45 NACL + KCL 20 MEQ 1,000 ML IV SCH (05:43)
[2017-08-22 05:57] LABS: CALCIUM 10.1 mg/dl (8.4-10.2); CREATININE 0.77 mg/dl (0.44-1.00); POTASSIUM 3.8 mmol/L (3.5-5.1)
[2017-08-22 07:25] VITALS: BP 120/60; RESP 18
--- NOTE | 2017-08-22 11:42 | PN ---
Date/Time of Note Date/Time of Note DATE: 08/22/17 TIME: 11:41 Assessment/Plan VTE Prophylaxis VTE Prophylaxis Intervention: ambulation, SCD's Lines/Catheters IV Catheter Type (from Nrsg): Peripheral IV Assessment/Plan Chief Complaint/Hosp Course Impression and plan 1.Abdominal pain secondary to possible partial SBO versus early small bowel obstruction. Small bowel follow-through was negative for any obstruction. advance diet as tolerated 2. Positive leukocyte esterase test. Empirically on antibiotic. Possibly contamination. Will monitor 3. Transaminitis. Monitor for now. Further workup pending clinical course. Remained stable dispo/plan. Advance as tolerated. Anticipate discharge within the next 24 hours medically stable and cleared by consultants Discussed plan of care with Dr. Desai Problems: Subjective 24 Hr Interval Summary Free Text/Dictation less abd pain. tolerating liquid diet well. Exam/Review of Systems Vital Signs Vitals Vital Signs Date Time Temp Pulse Resp B/P Pulse Ox O2 Delivery O2 Flow Rate FiO2 08/22/17 07:25 98.6 18 120/60 96 08/22/17 02:41 69 08/20/17 01:21 Room Air Intake and Output 08/21/17 08/21/17 08/22/17 15:00 23:00 07:00 Intake Total 1532 ml 1400 ml Balance 1532 ml 1400 ml Exam Constitutional: alert, oriented Eyes: nl conjunctiva Respiratory: clear to auscultation, normal air movement Cardiovascular: nl pulses, regular rate and rhythm Gastrointestinal: soft, no tenderness Musculoskeletal: nl extremities to inspection Neurological: CLINICAL RN LIAISON II-XII intact, nl mental status, nl speech Results Result Diagram: 08/22/17 0433 08/22/17 0433 Results 24 hrs Laboratory Tests Test 08/22/17 04:33 White Blood Count 10.3 Red Blood Count 4.04 L Hemoglobin 12.0 Hematocrit 36.1 L Mean Corpuscular Volume 89.4 Mean Corpuscular Hemoglobin 29.7 Mean Corpuscular Hemoglobin Concent 33.2 Red Cell Distribution Width 13.1 Platelet Count 296 Mean Platelet Volume 10.4 Neutrophils % 63.9 Lymphocytes % 24.7 Monocytes % 9.5 Eosinophils % 1.2 Basophils % 0.5 Nucleated Red Blood Cells % 0.0 Neutrophils # 6.6 Lymphocytes # 2.5 Monocytes # 1.0 H Eosinophils # 0.1 Basophils # 0.1 Nucleated Red Blood Cells # 0.0 Sodium Level 138 Potassium Level 3.8 Chloride Level 106 Carbon Dioxide Level 24 Anion Gap 12 Blood Urea Nitrogen 13 Creatinine 0.77 Glucose Level 107 # Calcium Level 10.1 Medications Medications Current Medications Potassium Chloride/Dextrose/ Sod Cl (D5-1/2ns + KCl 20 Meq) 1,000 ml @ 75 mls/ hr [id number] IV Last administered on 08/22/17 05:43; Admin Dose 75 MLS/HR; Start 08/19/17 at 16:50 Ondansetron HCl (Zofran Inj) 4 mg Q6H PRN IV NAUSEA AND/OR VOMITING Last administered on 08/21/17 13:18; Admin Dose 4 MG; Start 08/19/17 at 17:00 Acetaminophen (Tylenol Tab) 650 mg Q6H PRN PO PAIN LEVEL 1-3 OR FEVER; Start 08/19/17 at 17:00 Acetaminophen (Tylenol Supp) 650 mg Q6H PRN [place] PAIN LEVEL 1-3 OR FEVER; Start 08/19/17 at 17:00 Acetaminophen/ Hydrocodone Bitart ([place] (5/325)) 1 tab Q6H PRN PO MODERATE PAIN LEVEL 4-6; Start 08/19/17 at 17:00 Acetaminophen/ Hydrocodone Bitart ([place] (5/325)) 2 tab Q6H PRN PO SEVERE PAIN LEVEL 7-10; Start 08/19/17 at 17:00 Morphine Sulfate (morphine) 2 mg Q4H PRN IV SEVERE PAIN LEVEL 7-10 Last administered on 08/21/17 13:18; Admin Dose 2 MG; Start 08/19/17 at 17:00 Docusate Sodium (Colace) 100 mg Q12H PRN PO CONSTIPATION; Start 08/19/17 at 17 :00 Magnesium Hydroxide (Milk Of Mag) 30 ml DAILY PRN PO CONSTIPATION; Start 08/19 at 17:00 Bisacodyl (Dulcolax Supp) 10 mg DAILY PRN [place] CONSTIPATION; Start 08/19/17 at 17:00 Pantoprazole (Protonix Iv) 40 mg DAILY@06 IV Last administered on 08/22/17 05 :41; Admin Dose 40 MG; Start 08/20/17 at 06:00 Morphine Sulfate (morphine) 4 mg Q4H PRN IV pain Last administered on 21:21; Admin Dose 4 MG; Start 08/20/17 at 14:00 Ciprofloxacin (Cipro) 500 mg BID@,18 PO Last administered on 08/22/17 05:41 ; Admin Dose 500 MG; Start 08/21/17 at 18:00 YESSY MONTOYA Aug 22, 2017 11:42
[2017-08-22] MEDS ORDERED: TRAM50TA2 PO (11:45)
[2017-08-22] MEDS ORDERED: CIPR500T4 PO (11:45)
--- NOTE | 2017-08-22 11:46 | PDOCDIS ---
Discharge Instructions DIAGNOSIS Discharge Diagnosis 1.Abdominal pain secondary to possible partial SBO versus early small bowel obstruction. 2. Positive leukocyte esterase test. possible UTI 3. Transaminitis. HOME CARE INSTRUCTIONS: Diet Instructions: Low Fat /Cholesterol FOLLOW UP/APPOINTMENTS Follow-up Plan 1. Follow up with your primary care provider in one week YESSY MONTOYA Aug 22, 2017 11:46
--- NOTE | 2017-08-22 13:50 | PN ---
Date/Time of Note Date/Time of Note DATE: 08/22/17 TIME: 13:47 Assessment/Plan Lines/Catheters IV Catheter Type (from Nrsg): Peripheral IV Assessment/Plan Chief Complaint/Hosp Course 1. Partial sbo vs. ileus: recent right colectomy; +bowel function; sbft normal , -ambulate -full liquids, if tolerates can advance diet 2. Abdominal pain: 2/2 #1 -pain management 3. UTI: -abx per sensitivity -frequent bladder emptying/cath care 4. Elevated alk phos -trend 5. Hypercalcemia -optimize lytes Thank you. Patient seen and examined in collaboration with Dr. Los Perry. Problems: Subjective 24 Hr Interval Summary Still bloated but able to pass gas and small bm. Min nausea but no vomiting. No fevers, chills, sob, congested cough, cp, palpitations, cardenas, dizziness, n/v/d/ dysuria. Exam/Review of Systems Vital Signs Vitals Vital Signs Date Time Temp Pulse Resp B/P Pulse Ox O2 Delivery O2 Flow Rate FiO2 08/22/17 07:25 98.6 18 120/60 96 08/22/17 02:41 69 08/20/17 01:21 Room Air Intake and Output 08/21/17 08/21/17 08/22/17 15:00 23:00 07:00 Intake Total 1532 ml 1400 ml Balance 1532 ml 1400 ml Exam Free Text/Dictation Constitutional: alert, oriented Psych: nl mood/affect Head: atraumatic, normocephalic Eyes: nl lids, nl sclera ENMT: mucosa pink and moist, nl nasal mucosa & septum Neck: non-tender, supple Respiratory: clear to auscultation, normal air movement Cardiovascular: nl pulses, regular rate and rhythm (sr) Gastrointestinal: nondistended, soft, tender (lower quads), +bowel sounds Genitourinary - Female: nl adnexae, nl external genitalia Musculoskeletal: nl extremities to inspection, nl gait and stance Extremities: normal pulses Neurological: nl mental status, nl speech, nl strength Skin: No rash or lesions Lymph: nl lymph nodes Results Result Diagram: 08/22/17 0433 08/22/17 0433 KIERRA WALTERS NP Aug 22, 2017 13:50
[2017-08-22 14:36] VITALS: BP 126/70; RESP 18
[2017-08-22 19:42] VITALS: BP 139/67; RESP 18
[2017-08-23 02:31] VITALS: BP 128/69; RESP 18
[2017-08-23] MEDS: PANTOPRAZOLE 40 MG INJ IV SCH (05:37)
[2017-08-23] MEDS: CIPROFLOXACIN 500 MG TAB PO SCH (05:38)
[2017-08-23 05:39] LABS: BASOPHILS % 0.5 % (0.0-2.0); EOSINOPHILS # 0.1 10^3/ul (0.0-0.5); EOSINOPHILS % 1.2 % (0.0-7.0); HEMATOCRIT 39.3 % (37.0-47.0); HEMOGLOBIN 12.9 g/dl (12.0-16.0); LYMPHOCYTES % 24.7 % (15.0-51.0); MEAN CORPUSCULAR HEMOGLOBIN 29.1 pg (29.0-33.0); MEAN CORPUSCULAR HGB CONC 32.8 g/dl (32.0-37.0); MEAN CORPUSCULAR VOLUME 88.5 fl (82.0-101.0); MEAN PLATELET VOLUME 10.4 fl (7.4-10.4); MONOCYTE # 0.8 10^3/ul (0.3-0.9); MONOCYTES % 9.3 % (0.0-11.0); NEUTROPHIL # 5.2 10^3/ul (1.6-7.5); NEUTROPHILS % 64.2 % (39.0-77.0); PLATELET COUNT 315 10^3/UL (140-415); RED BLOOD COUNT 4.44 10^6/ul (4.20-5.40); RED CELL DISTRIBUTION WIDTH 12.9 % (11.5-14.5); WHITE BLOOD COUNT 8.1 10^3/ul (4.8-10.8)
[2017-08-23 06:03] LABS: CALCIUM 10.4 mg/dl (8.4-10.2); CREATININE 0.73 mg/dl (0.44-1.00); POTASSIUM 3.7 mmol/L (3.5-5.1)
[2017-08-23 07:46] VITALS: BP 121/61; RESP 16
[2017-08-23] MEDS: ONDANSETRON 4 MG INJ IV PRN (14:52)
== END 2017-08-23 15:00 | disposition home or self-care (01) | DRG 389 ==
LOC: E/R 09:59 → MS1 14:09
PROVIDERS: ADMIT Family Medicine; ATTEND Family Medicine
DX: K56.609 Unspecified intestinal obstruction, unspecified as to partial versus complete obstruction (principal); N39.0 Urinary tract infection, site not specified; E83.52 Hypercalcemia
CPT/HCPCS: 36415; 74177; 74250; 80048; 80053; 80061; 81001; 83036; 83690; 83735; 84100; 84436; 84443; 84479; 85025; 87086; 96374; 96375; C9113; J1170; J2270; J2405; J3480; J7030; Q9967

== ENCOUNTER 2017-08-24 23:40 | Inpatient (IN) | END 2017-08-30 11:40 | disposition home or self-care (01) | DRG 348 ==